=== PATIENT | female | born 1980 | race Caucasian/White ===

== ENCOUNTER 2023-10-01 18:20 | Emergency (ER) | payer BC, SELFPAY ==
[2023-10-01 18:22] VITALS: BP 109/77
--- NOTE | 2023-10-01 19:14 | ED.GENMED ---
History of Present Illness
General
Chief Complaint: Musculo-Skeletal Complaint
Source: patient
Exam Limitations: none
Time Seen by Provider: 10/01/23 19:08
History of Present Illness
History of Present Illness:
Patient carrying groceries and fell onto a clenched fist causing pain of the right hand. No other injury or complaint
Phy Exam
Physical Exam
Physical Exam:
General: Nontoxic appearing in no distress
Skin: Warm and dry, no rash
Neuro: Alert, nontoxic, grossly nonfocal
Psychiatric: Good eye contact and appropriate
Musculoskeletal: Swelling tenderness distal fifth metacarpal right hand. Very very superficial abrasion. Motor or sensory neurovascular intact. No open fracture.
Course
Orders/Labs/Results
Orders:
Orders
10/01/23 18:25
Hand, Right 3 View [CR Hand - Right Min 3 Views] Urgent
Comment:
Reason For Exam: fall pain
10/01/23 19:12
Ulnar Gutter Right-Treatment ONCE
Ibuprofen [Motrin] 600 mg PO NOW STA
Vital Signs
Initial and Last Documented VS:
Initial Vital Signs
Temp Pulse Resp BP Pulse Ox
98.8 F 109 16 109/77 98
10/01/23 18:22 10/01/23 18:22 10/01/23 18:22 10/01/23 18:22 10/01/23 18:22
Last Documented Vital Signs
Temp Pulse Resp BP Pulse Ox
98.8 F 109 16 109/77 98
10/01/23 18:22 10/01/23 18:22 10/01/23 18:22 10/01/23 18:22 10/01/23 18:22
*Radiology
Radiology exam reviewed: preliminary read by ED provider (Boxer's fracture right fifth metacarpal)
*Pulse Oximetry
Patient hypoxic: no
*Critical Care Note
Total Time (30-74mins, 75-104mins- exclusive of procedures): Not Applicable
ED Attending Note
-
Portions of this chart may have been created with voice recognition software.� Occasional wrong word or��sound alike� substitutions may have occurred due to the inherent limitations of voice recognition software.
Discharge Plan
Departure
Patient Disposition: Home (Routine Discharge)
Date of Disposition: 10/01/23
Time of Disposition: 19:38
Patient with high blood pressure during this ER visit?: No
Discharge Problem:
Right fifth metacarpal fracture
Instructions: Hand Fracture ED
Prescriptions:
No Action
prednisone 50 MG tablet
50 mg PO DAILY Qty: 5 0RF
Referrals:
Terrance Padilla MD [Active] - Tomorrow
Sylvia Foreman PA-C [Family Provider] -
Stand Alone Forms: Return to Work
Interventions
Interventions:
*Risk Screen - Suicide Last Done: 10/01/23 18:22
*General Assessment Last Done: 10/01/23 18:22
*Neglect/Abuse Screening Last Done: 10/01/23 18:22
ED- Fall Risk Assessment Last Done: 10/01/23 18:50
*ED COVID-19 Vaccine History Last Done: 10/01/23 18:50
*Nursing Disposition Last Done: 10/01/23 19:48
ED-Musculoskeletal Assessment Last Done: 10/01/23 18:54
Discharge Date and Time
Discharge Date/Time: 10/01/23 20:03
Print Language: KITTITIAN
[2023-10-01] MEDS: MOTRIN 600 MG PO (19:15)
== END 2023-10-01 20:03 | disposition home or self-care (01) ==
LOC: EMR 18:20
PROVIDERS: EMERGENCY PHYSICIAN Emergency Medicine; FAMILY PHYSICIAN Physician Assistant Medical
DX: S62.336A Displaced fracture of neck of fifth metacarpal bone, right hand, initial encounter for closed fracture (principal); W19.XXXA Unspecified fall, initial encounter
CPT/HCPCS: 99283; 29125; 73130

== ENCOUNTER 2024-07-10 17:40 | Emergency (ER) | payer BC, SELFPAY ==
[2024-07-10 17:43] VITALS: BP 108/68
--- NOTE | 2024-07-10 19:08 | ED.GENMED ---
History of Present Illness
General
Chief Complaint: Musculo-Skeletal Complaint
Source: patient
Exam Limitations: none
Time Seen by Provider: 07/10/24 18:31
Nursing documentation reviewed up to this point in time: agreed with
History of Present Illness
History of Present Illness:
43 y/o F
r hand dominant
mechanical fall through an ottomon at [facility] onto L elbow
able to move it with some pain
mild sewlling
no other complaitns
no head/neck pain
Phy Exam
Physical Exam
Physical Exam:
GENERAL: Alert , in no apparent distress, comfortable at rest
HEAD: NCAT
CV: 2+ radial pulses b/l
NEUROLOGICAL: Alert and oriented, no focal neuro deficits, , 5/5 strength, sensation intact, ambulation slight limp right leg
SKIN: Warm and dry, small bruise and abrasion L lateral elbow
MUSCULOSKELETAL: L elbow mild STS laterally posteriorly with bruiisng/ab rasion
full ROM
no effusion
pain with flexion past 90 degrees
forearm/shoulder/hand/wrsit normal
;
PSYCH: Normal and appropriate interaction.
Course
Orders/Labs/Results
Orders:
Orders
07/10/24 17:47
CR Elbow - Left Min 3 Views Urgent
Comment:
Reason For Exam: fall pain
Vital Signs
Initial and Last Documented VS:
Initial Vital Signs
Temp Pulse Resp BP Pulse Ox
36.8 C 72 20 108/68 99
07/10/24 17:43 07/10/24 17:43 07/10/24 17:43 07/10/24 17:43 07/10/24 17:43
Last Documented Vital Signs
Temp Pulse Resp BP Pulse Ox
36.8 C 72 20 108/68 99
07/10/24 17:43 07/10/24 17:43 07/10/24 17:43 07/10/24 17:43 07/10/24 17:43
MDM/Problems Addressed
Differential Diagnosis Includes:
contusion, fracdture
MDM/Problems Addressed:
43 y/o F mechanical fall onto L elbow when she tried to jump on an ottomon in [facility] and it opened into two pieces and she fell onto the ground
some bruising but able to move the elbow
normal shoulder, forearm, wrist
xray indep reviewed, neg for fx
acew rap offered, pt delcined
nsaids
rice
*Critical Care Note
Total Time (30-74mins, 75-104mins- exclusive of procedures): Not Applicable
ED Attending Note
-
Portions of this chart may have been created with voice recognition software.� Occasional wrong word or��sound alike� substitutions may have occurred due to the inherent limitations of voice recognition software.
Discharge Plan
Departure
Patient Disposition: Home (Routine Discharge)
Date of Disposition: 07/10/24
Time of Disposition: 19:09
Patient with high blood pressure during this ER visit?: No
Condition: Fair
Covid-19: Not Applicable
Discharge Problem:
Contusion of elbow, left
Instructions: Contusion (DC)
Prescriptions:
No Action
ondansetron HCl [Zofran] 4 mg Tablet
4 mg PO Q6H PRN (Reason: nausea)
tramadol 50 mg Tablet
50 mg PO Q4H PRN (Reason: finger pain)
acetaminophen [Tylenol Ex Str Arthritis Pain] 500 mg Tablet
1,000 mg PO Q6H PRN (Reason: finger pain)
Referrals:
Duran Street MD [Active] - Follow up in 1 week (ORTHO)
Activity Restrictions/Additional Instructions:
YOUR ELBOW IS NOT BROKEN BUT YOU LIKELY BRUISED IT
ICE OFF AND ON
MOTRIN FOR PAIN
ELEVATE
FOLLOW UP WITH ORTHOPEDICS NEEDED FOR CONTINUED PAIN
RETURN FO RANY CONCERNS
Interventions
Interventions:
*Risk Screen - Suicide Last Done: 07/10/24 17:43
*General Assessment Last Done: 07/10/24 17:43
*Neglect/Abuse Screening Last Done: 07/10/24 17:43
*Nursing Disposition Last Done: 07/10/24 19:36
ED-Musculoskeletal Assessment Last Done: 07/10/24 19:35
Discharge Date and Time
Discharge Date/Time: 07/10/24 19:37
Print Language: FAROESE
== END 2024-07-10 19:37 | disposition home or self-care (01) ==
LOC: EMR 17:40
PROVIDERS: EMERGENCY PHYSICIAN Emergency Medicine; FAMILY PHYSICIAN Physician Assistant Medical
DX: S50.02XA Contusion of left elbow, initial encounter (principal); S50.312A Abrasion of left elbow, initial encounter; W19.XXXA Unspecified fall, initial encounter; Y92.512 Supermarket, store or market as the place of occurrence of the external cause
CPT/HCPCS: 99283; 73080

== ENCOUNTER → 2024-10-18 09:00 | Outpatient (REF) | payer BC, SELFPAY | LOC: WDC 09:00 | PROVIDERS: ATTENDING PHYSICIAN Nurse Practitioner Obstetrics & Gynecology; FAMILY PHYSICIAN Physician Assistant Medical | DX: N63.21 Unspecified lump in the left breast, upper outer quadrant (principal) | CPT/HCPCS: 76642; 77062; 77066 ==